=== PATIENT | male | born 1985 | race Caucasian/White ===

== ENCOUNTER 2023-08-21 05:15 | Emergency (ER) | payer OTHER, SELFPAY ==
[2023-08-21 05:17] VITALS: BP 140/82
--- NOTE | 2023-08-21 06:14 | ED.GENMED ---
History of Present Illness
General
Chief Complaint: Skin Surface Trauma
Source: patient
Exam Limitations: none
Time Seen by Provider: 08/21/23 05:23
Nursing documentation reviewed up to this point in time: agreed with
Travel History
Have you had any contact with someone who has COVID-19?: No
Do you have any symptoms of coronavirus? Fever > 100 degrees, chills, cough, shortness of breath, sore throat, loss of taste or smell, muscle aches, or headache?: No
History of Present Illness
History of Present Illness:
37-year-old male with no significant chronic medical issues presents for evaluation of leg laceration. Patient was at the gym today doing box jumps and slipped and struck his shins on the box. Sustained a laceration to the left anterior ca as
well as an abrasion to the anterior ca. Came to the emergency room for assessment. No other injuries. Tetanus up-to-date per patient.
Review of Systems
Review of Systems
All Other Systems: ROS reviewed and negative except as documented in HPI and ROS
Skin: Reports other (Laceration, abrasion)
Phy Exam
Physical Exam
Physical Exam:
General: Well appearing and non-toxic
HEENT: protecting airway
Neck: appears supple
CV: No evidence of cyanosis
Resp: No accessory muscle use
Abd: Non-distended
Extremities: No deformities
Neuro: Alert
Psych: Normal affect
Skin: Patient has approximately 6 to 7 cm linear vertical laceration somewhat ragged edges on the left anterior ca; he has a linear abrasion to the right anterior ca
Scores
Heart Failure Risk
Heart Failure Risk Score: Not Applicable
Heart Score for Chest Pain Patients
STEMI patient?: Not applicable
Withdrawal Assessment of Alcohol
Withdrawal Assessment Completed?: Not applicable
Course
Orders/Labs/Results
Orders:
Orders
08/21/23 05:24
Tetanus/Diphth/Acelpertussis [Adacel] 0.5 ml IM .ONCE ONE
Vital Signs
Initial and Last Documented VS:
Initial Vital Signs
Temp Pulse Resp BP Pulse Ox
36.7 C 60 18 140/82 98
08/21/23 05:08/21/23 05:08/21/23 05:08/21/23 05:08/21/23 05:17
Last Documented Vital Signs
Temp Pulse Resp BP Pulse Ox
36.7 C 60 18 140/82 98
08/21/23 05:08/21/23 05:08/21/23 05:08/21/23 05:08/21/23 05:17
Procedures
Laceration Closure
Left Lower Leg:
Status of Wound: clean
Size of Wound in cm: 7
Description of Wound Edges: ragged
Preparation: cleaned with Betadine
Anesthesia: 1% Lidocaine with epi
Revision/Debridement: minor revision
Type of Closure: layered closure
Skin Closure Material: 4-0 nylon and 4-0 chromic gut
Number of sutures: 12
Additional information:
3 deep 4-0 Chromic Gut sutures with 9 superficial 4-0 nylon sutures
MDM/Problems Addressed
Differential Diagnosis Includes:
Laceration, abrasion
MDM/Problems Addressed:
37-year-old male presents with a laceration to the left anterior ca and also has an abrasion to the right ca. Relatively deep and gaping with ragged edges. Repaired as documented in procedure note. He is ambulatory with minimal reproducible
tenderness no indication for an x-ray at this point. Tetanus is up-to-date. Advised rest, ice, elevation, Motrin as needed for pain. Will follow-up in a week for suture removal. Spoke about return precautions including all signs of infection.
All questions answered.
*Pulse Oximetry
Patient hypoxic: no
*Critical Care Note
Total Time (30-74mins, 75-104mins- exclusive of procedures): Not Applicable
Data Reviewed
Source: patient
Further Testing Considered But Not Given:
Considered x-ray of the tibia
ED Attending Note
-
Portions of this chart may have been created with voice recognition software.� Occasional wrong word or��sound alike� substitutions may have occurred due to the inherent limitations of voice recognition software.
Discharge Plan
Departure
Patient Disposition: Home (Routine Discharge)
Date of Disposition: 08/21/23
Time of Disposition: 06:17
Patient with high blood pressure during this ER visit?: No
Discharge Problem:
Laceration of leg, Abrasion of leg
Instructions: Laceration Repair With Stitches (DC)
Activity Restrictions/Additional Instructions:
You were seen in the emergency room for a laceration to your leg. It was repaired with stitches. Your stitches must be removed in 1 week. You can either follow-up with your primary care physician, return to the emergency room, or go to urgent
care to have your stitches removed. If you notice any signs of infection as we discussed you should return immediately to the emergency room to be reassessed.
Thank you for visiting the Emergency Department at [facility].
1. Please schedule a follow up appointment as directed. Call first thing tomorrow morning to make an appointment.
2. If indicated, please take your medications as instructed and indicated on discharge paperwork.
3. If any of your symptoms do not improve, or persist, or become more severe within 6-12 hours, please return to the emergency department for further care.
4. Please return to the emergency department if you develop a headache, neck pain/stiffness, fever greater than 100.4F, chest pain, shortness of breath, persistent nausea, vomiting, slurred speech, difficulty walking, numbness/tingling, weakness,
signs of infection or any other symptoms that are worrisome to you.
Please call [phone] if you have any questions.
Interventions
Interventions:
*Risk Screen - Suicide Last Done: 08/21/23 05:17
*General Assessment Last Done: 08/21/23 05:44
*Neglect/Abuse Screening Last Done: 08/21/23 05:17
== END 2023-08-21 06:25 | disposition home or self-care (01) ==
LOC: EMR 05:15
PROVIDERS: EMERGENCY PHYSICIAN Emergency Medicine
DX: S81.812A Laceration without foreign body, left lower leg, initial encounter (principal); S80.811A Abrasion, right lower leg, initial encounter; W22.09XA Striking against other stationary object, initial encounter
CPT/HCPCS: 99284; 12032

== ENCOUNTER → 2024-05-08 15:11 | Outpatient (REF) | payer OTHER, SELFPAY | LOC: RAD 15:11 | PROVIDERS: ATTENDING PHYSICIAN Internal Medicine | DX: K42.9 Umbilical hernia without obstruction or gangrene (principal) | CPT/HCPCS: 74177; Q9967 ==

== ENCOUNTER → 2024-12-25 07:56 | Outpatient (REF) | payer OTHER, SELFPAY | LOC: RAD 07:56 | PROVIDERS: ATTENDING PHYSICIAN Internal Medicine | DX: R74.01 Elevation of levels of liver transaminase levels (principal) | CPT/HCPCS: 76700 ==